=== PATIENT | female | born 1935 | race Caucasian/White ===

== ENCOUNTER 2018-09-26 10:45 | Inpatient (IN) | payer MEDICARE ==
--- NOTE | 2018-09-26 11:30 | RAD ---
RIGHT HIP TWO VIEWS: HISTORY: Injury. COMPARISON: None. FINDINGS: There is a fracture of the right inferior pubic ramus and a nondisplaced fracture of the right superi or pubic ramus. Either a peripherally calcified fibroid or a calcified mass in the left adnexa. The right femoral head and neck appear normal. IMPRESSION: Right inferior and superior rami fractures. Recommend dedicated views of the pelvis to evaluate the left superior and inferior pubic rami. POS: ANTHONY
[2018-09-26 12:09] LABS: ALT (SGPT) 22 U/L (8-55); AST (SGOT) 23 U/L (5-34); Albumin 4.1 g/dL (3.4-4.8); Alkaline Phosphatase 80 U/L (40-150); Anion Gap 16 mmol/L (10-20); BUN (Urea Nitrogen) 18 mg/dL (9.8-20.1); Bilirubin, Total 0.5 mg/dL (0.2-1.2); Calc. Creatinine Clearance 0 mL/min (70-130); Calcium 9.5 mg/dL (7.8-10.44); Carbon Dioxide 26 mmol/L (23-31); Chloride 104 mmol/L (98-107); Estimated GFR-MDRD 75; Globulin 2.5 g/dL (2.4-3.5); Glucose 88 mg/dL (83-110); Potassium 3.9 mmol/L (3.5-5.1); Protein, Total 6.6 g/dL (6.0-8.3); Sodium 142 mmol/L (136-145)
[2018-09-26 12:50] LABS: #Basophils 0.1 thou/uL (0.0-0.2); #Eosinphils 0.1 thou/uL (0.0-0.7); #Lymphocytes 0.9 thou/uL (1.20-3.40); #Monocytes 0.5 thou/uL (0.11-0.59); #Neutrophils 2.7 thou/uL (1.40-6.50); %Eosinophils 2.7 % (0.0-10.0); %Lymphocytes 21.8 % (21.0-51.0); %Monocytes 10.6 % (0.0-10.0); %Neutrophils 62.9 % (42.0-75.0); Hemoglobin 14.1 g/dL (12.0-16.0); Mean Corpuscular HGB CONC 34.1 g/dL (32.0-36.0); Mean Corpuscular Hemoglobin 32.2 pg (27.0-31.0); Mean Corpuscular Volume 94.5 fL (78.0-98.0); Mean Platelet Volume 6.7 fL (7.4-10.4); Platelet Count 143 thou/uL (130-400); RBC Distribution Width 13.4 % (11.5-14.5); Red Blood Cell (RBC) Count 4.37 mill/uL (4.20-5.40); White Blood Cell (WBC) Count 4.2 thou/uL (4.8-10.8)
--- NOTE | 2018-09-26 14:18 | CT ---
CT ABDOMEN NONCONTRAST CT PELVIS NONCONTRAST: (urolithiasis protocol) DATE: 09/26/18 TIME: 1150 hours HISTORY: 83-year-old female with traumatic right hip and right groin pain due to fall. Abnormal x-ray. COMPARISON: None. TECHNIQUE: IV injection of iodinated contrast media: none Oral contrast media: none FINDINGS: Other than for urolithiasis, the lack of IV and oral contrast limits the evaluation. There is a minimally displaced fracture of the right inferior ramus. There is no fracture of the righ t superior ramus, left superior ramus, or left inferior ramus. No fracture is identified involving th e rest of the pelvis or bilateral proximal femora. There is no associated extrapelvic hematoma. There is no free fluid within the pelvic cavity. There is a large calcified uterine fibroid in the left po sterior inferior aspect of the pelvic cavity. There are multiple hepatic cysts. No retroperitoneal he matoma. No free fluid within the abdominal cavity. Large amount of colonic stool. No renal, ureteral, or bladder calculus. No small bowel dilation. Lung bases are grossly clear. No compression fracture of the lumbar spine. There is a levoscoliosis of the lumbar spine. IMPRESSION: 1. Minimally displaced, acute, traumatic fracture of the inferior ramus of the right pelvis. 2. No other fracture. 3. Multiple hepatic cysts. LUISITO Watkins POS: DOLLY
[2018-09-26] MEDS ORDERED: Acetaminophen 650 MG Suppository PR PRN (14:27)
[2018-09-26] MEDS ORDERED: Ondansetron PF 4 MG/2 ML Vial SLOW IVP PRN (14:27)
[2018-09-26] MEDS ORDERED: Bisacodyl 5 MG TAB PO PRN (14:27)
[2018-09-26] MEDS ORDERED: HYDROcodone/Acetaminophen 10/325 mg Tablet PO PRN ×2 (14:27)
[2018-09-26] MEDS ORDERED: Sodium Chloride 0.9% (PF) 10 ML VIAL FS PRN (14:29)
[2018-09-26 14:36] VITALS: BMI 18.3
[2018-09-26] MEDS ORDERED: Acetaminophen 325 MG TAB PO PRN (18:07)
[2018-09-26] MEDS ORDERED: Acetaminophen/Codeine 30-300mg Tablet PO PRN (18:08)
[2018-09-27 05:09] LABS: #Basophils 0.1 thou/uL (0.0-0.2); #Eosinphils 0.1 thou/uL (0.0-0.7); #Lymphocytes 0.9 thou/uL (1.20-3.40); #Monocytes 0.6 thou/uL (0.11-0.59); #Neutrophils 2.9 thou/uL (1.40-6.50); %Basophils 1.8 % (0.0-1.0); %Eosinophils 2.4 % (0.0-10.0); %Lymphocytes 19.1 % (21.0-51.0); %Monocytes 13.1 % (0.0-10.0); %Neutrophils 63.6 % (42.0-75.0); Hemoglobin 13.6 g/dL (12.0-16.0); Mean Corpuscular HGB CONC 34.4 g/dL (32.0-36.0); Mean Corpuscular Hemoglobin 31.7 pg (27.0-31.0); Mean Platelet Volume 6.6 fL (7.4-10.4); Platelet Count 136 thou/uL (130-400); Red Blood Cell (RBC) Count 4.28 mill/uL (4.20-5.40); White Blood Cell (WBC) Count 4.6 thou/uL (4.8-10.8)
[2018-09-27 05:25] LABS: Anion Gap 11 mmol/L (10-20); BUN (Urea Nitrogen) 14 mg/dL (9.8-20.1); Calc. Creatinine Clearance 44 mL/min (70-130); Calcium 8.9 mg/dL (7.8-10.44); Carbon Dioxide 28 mmol/L (23-31); Cardiac Risk 2.6 (Less than 4.5); Chloride 106 mmol/L (98-107); Cholesterol 159 mg/dl (< 200 Desired); Estimated GFR-MDRD 82; Glucose 88 mg/dL (83-110); HDL Cholesterol 62 mg/dL (>60 Neg Risk); LDL Cholesterol, Calculated 88 mg/dL; Potassium 3.7 mmol/L (3.5-5.1); Sodium 141 mmol/L (136-145); Triglycerides 43 mg/dL (Less than 150)
[2018-09-27 06:57] VITALS: BP 116/56; TEMP 99
--- NOTE | 2018-09-27 07:32 | HP ---
CHIEF COMPLAINT: Fall and pain in the hip and pelvic area, and difficulty walking. HISTORY OF PRESENT ILLNESS: The patient is a very pleasant 83-year-old white female, who is independent of all her ADLs. She lives at home with her and she is independent also with her instrumental ADLs and continues to drive. She has a distant history of atrial fibrillation and stroke that left her with no impairment, and also a history of hypothyroidism, for which she is only on a natural thyroid supplement. Today, the patient had gone to see her massage therapist and as she arrived there, she had a couple of packs that were heavy and she was setting these down and grabbing hold of a rail. She got over-balanced and fell on to her right hip. She had immediate pain somewhere in the hip or pelvic area, and did not think it was anything serious. Two ladies that were present came to help her up and when they tried to get her up, she had pain that she noticed in the right pelvic and hip area. She was able to walk, but very cautiously and with the walking she had pain. Her friends brought her to the emergency room, where she was evaluated. She underwent an x-ray of the pelvis and the hip and also CT scan of the abdomen and pelvis. The CT scan showed that she had a non-displaced or impacted type fracture of the right inferior pubic ramus. There was no fracture of the superior ramus that was suggested on the plain x-ray, and there was no fracture on the left superior or inferior ramus. The CT of the abdomen also showed evidence of calcifications and fibroid on the uterus and also showed evidence of some cyst on the liver, otherwise was normal. She had lab work done in the emergency room that showed an H and H of 14.1 and 41.3 with a white blood cell count of 4,200 with 63% segs, 23% lymphocytes, and a platelet count of 143,000. Her sodium was 142, potassium 3.9, BUN 18, creatinine 0.74, GFR 75, glucose 99. Her liver panel was normal. Albumin was 4.1. The patient was admitted to the hospital for fracture of the inferior pubic ramus, for pain control, and therapy. The patient was seen soon after her admission and she said she was feeling good and she was not in any pain, but did have a little bit of pain and difficulty transferring and moving from a lying to a sitting position and reverse of this. She said she has been able to walk cautiously with the use of a walker. She hopes to be able to go home tomorrow and she said her would be there to help her. PAST MEDICAL HISTORY: The patient had a CVA, when she was age 50 and she said it affected her by dragging her left foot, this though has all gone away. She has hypothyroidism, but has not been on any prescription medication, but takes a natural thyroid supplement. She has a history of atrial fibrillation, but is not under any present care or on any medications for this. She has had a tonsillectomy at the age of 10. She is a 2, para 2. She had a chip fracture on the left tibia that she is recovering from at present. PRESENT MEDICATIONS: 1. Vitamin D. 2. Cardio Plus vitamin. 3. CitroPlus vitamin. 4. Cod liver oil. 5. Butter oil. 6. Cali oil. 7. Black cumin. ALLERGIES: THE PATIENT SAID SHE IS UNABLE TO TAKE IBUPROFEN. SHE WAS CONCERNED THAT THIS MAY HAVE CAUSED HER STROKE. REVIEW OF SYSTEMS: GENERAL: The patient said she has not had any recent fever. She has had no recent weight loss, but admits to having a hard time maintaining her weight, but she has been like this for a long time. She is also cold intolerant. HEAD AND NECK: The patient has problems with a little nasal drainage and sneezing. PULMONARY: No shortness breath or cough. CARDIOVASCULAR: No chest pain. GI: No nausea or vomiting. The patient says she occasionally has a little trouble with indigestion. : No complaints. PSYCHIATRIC: No complaints. HABITS: Alcohol, none. Tobacco, none. SOCIAL HISTORY: The patient is , lives at home with her . Both of them are independent of their ADLs. The patient continues to drive. 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 CODE STATUS: DNR. PHYSICAL EXAMINATION: GENERAL: Shows a very pleasant asthenic-built 83-year-old white female, who is alert, talkative, and seems to be very aware of her situation. VITAL SIGNS: Shows a temperature of 96.7, pulse 97, respirations 16, O2 saturation 96% on room air. Her blood pressure is 121/70. Her weight is 100 pounds. Her height is 5 feet 2 inches. HEENT: Her head is normocephalic and atraumatic. Eyes, pupils are equal, round , and reactive. Sclerae nonicteric. Extraocular musculatures intact. Ears; TMs are clear. Nose normal. Mouth and throat, normal. NECK: Carotids have slight irregularity. No bruits. Thyroid not enlarged. LUNGS: Clear. HEART: Has irregularly irregular rhythm. ABDOMEN: Soft with no organomegaly, nor areas of tenderness. Palpation over the pelvic area shows no tenderness on anterior-posterior compression at the pubic symphysis. There is no tenderness with compression of the iliac crest. The patient is tender along the right inferior pubic ramus. EXTREMITIES: Her lower extremities have no edema. The pulses in her feet, dorsalis pedis was 2+, posterior tibialis was 2+. NEUROLOGIC: The patient's cranial nerves 2 through 12 were grossly intact with the exception she has inability to raise the left side of her mouth when she smiles. The patient has no focal weakness. The patient is oriented to place, situation , and time. MUSCULOSKELETAL: The patient has excellent body strength that is symmetric in the upper extremities and also in the lower extremities. She has a little decreased strength on the right side because that is the side that she has the pelvic fracture on. The patient has some trouble going from a sitting to a lying position and from a lying to a sitting position, she requires assistance. IMPRESSION: 1. Closed impacted fracture of the right pubic symphysis. a. Secondary to a fall from tripping on 09/26/2018. 2. Fall. a. Etiology, ground level fall from getting over-balanced that occurred on 09/26/2018. b. No history of any head injury or loss of consciousness and fall was witnessed. c. Resulted in closed impacted fracture of the inferior pubic ramus. 3. Chronic atrial fibrillation, rate controlled. a. On no anticoagulations or medication. 4. Hypothyroidism, on no medications other than a thyroid supplement. 5. Hepatic cyst seen on CT scan. 6. Calcified fibroids of the uterus seen on the CT scan, asymptomatic. 7. Gait abnormality secondary to a fall. PLAN: The patient has been admitted to the hospital. We will place her in JOS[facility] hose. PT and OT will evaluate her. We will order Tylenol for pain. The patient says she really does not think she will need anything. She hopes to go home tomorrow. We will wait and see how she does with physical therapy and ensure that she has adequate home support. Her atrial fibrillation, we will discuss with her on management for now and treatment. She has her own ideas about management of things. Code status is DNR. Job ID: [id number] MTDD
[2018-09-27] MEDS ORDERED: Enoxaparin Sodium 40 MG/0.4 ML SYRINGE SC SCH (09:00)
[2018-09-27] MEDS ORDERED: Pantoprazole 40 MG VIAL IVP SCH (09:00)
--- NOTE | 2018-09-27 12:25 | DIS ---
DATE OF ADMISSION: 09/26/2018 DATE OF DISCHARGE: 09/27/2018 FINAL DIAGNOSES: 1. Closed impacted fracture of the right pubic symphysis. a. Secondary to a fall from tripping on 09/26/2018. 2. Fall. a. Etiology, ground level fall from getting over-balanced that occurred on 09/26/2018. b. No history of any head injury or loss of consciousness and fall was witnessed. c. Resulted in closed impacted fracture of the inferior pubic ramus. 3. Chronic atrial fibrillation, rate controlled. a. On no anticoagulants or medication. b. At this time does not want to pursue Cardiology consultation. 4. Hypothyroidism, on no medications other than a thyroid supplement. a. TSH was 2.1. 5. Hepatic cyst seen on CT scan. 6. Calcified fibroids of the uterus seen on the CT scan, asymptomatic. 7. Gait abnormality secondary to a fall and fracture of the right inferior pubic ramus. SUMMARY: The patient is a very pleasant 83-year-old white female, who lives at home with her and is independent of all her ADLs, drives and attendance all her instrumental ADLs. She has a history of hypothyroidism, treated with thyroid supplement and also a history of atrial fibrillation and has opted not to pursue any followup with her research chemical engineer. She had a fall when she was going into see her massage therapist. She was putting down some packs that she was carrying and got overbalanced and fell onto her right hip. She could not get up on her own. The ladies there helped her up, but she had pain when she attempted to walk. She was brought to the emergency room and after evaluation with x-ray of the pelvis and hip and CT scan of the abdomen, she was found to have an impacted fracture of the right inferior pubic ramus. There was no other fractures noted. She did show a calcification in the uterine fibroid and also had some hepatic cysts. The patient was admitted to the hospital because of her discomfort with walking and her gait abnormality. The patient was seen soon after her admission and had maintained that she was doing fine and intends to go home tomorrow. The patient says she is not having any pain. She just has a little difficulty with getting up and down from bed and she said she can walk as long she has a walker and will have help at home. On exam, she was found to have an irregularly irregular rhythm. Her lungs were clear. Her pelvic area showed tenderness to palpation over the right inferior pubic ramus. There was no bruising in that area. She had no other areas of tenderness and with the fall, she did not hit her head. There was no loss of consciousness. The patient said she was not having any pain and maintained that she needed nothing for this. The patient was checked in the morning of 09/27, and was doing very well. She had a restful night. She said she was not hurting. Therapy had been with her yesterday and she was walking with a walker with just a little shuffling gait. They will work with her this morning. Her exam was unremarkable with the exception that her heart had the irregularly irregular rhythm with a rate of 80 and blood pressure was 116/56. Reviewed her lab work and her sodium was 141, potassium 3.7, BUN 14, creatinine 0.68, GFR 82. Her cholesterol 159, triglycerides 43, LDL 88, HDL 62, TSH 2.1. Her H and H was 13.6 and 39.4, white cell count 4600 with 64% segs, 19% lymphocytes, and a platelet count of a 136,000. The patient's electrocardiogram showed atrial fibrillation with a rate of 81. Visited with the patient and she maintained that she had people coming in that would assist her and she had her there and would be fine. I offered to let her stay a little longer for Therapy to continue to work with her, but she said that it is not necessary. I discussed her atrial fibrillation with her and she said in the past and years ago, she is seeing Dr. Rashid, but at that time, opted not to go through her all those suggestions that he had and would see her back, if she needed him. She has not been back. I discussed with her about the risk of stroke and recommended that she start a baby aspirin a day and consider re-seeing him. She said she will take this under consideration, but the patient' s condition was stable and it was felt that with the adequate support, her ability to ambulate with a walker, that she would be fine at home. We will see her in followup in my office in 2 weeks. DISPOSITION: DIET: Regular diet. ACTIVITIES: Ambulate with the use of a walker. MEDICATIONS: 1. Tylenol 500 mg 1 or 2 three times a day as needed for pain. 2. Aspirin 81 mg a day. Patient declined home health with in-home physical therapy. Will see her in followup in 2 weeks. Job ID: [id number] MTDD
== END 2018-09-27 09:30 | disposition home or self-care (01) | DRG 561 ==
LOC: MADERS 10:45 → MADMS 13:22
PROVIDERS: ADMIT Family Medicine; ATTEND Family Medicine
DX: S32.591D Other specified fracture of right pubis, subsequent encounter for fracture with routine healing (principal); I48.2 Chronic atrial fibrillation; E03.9 Hypothyroidism, unspecified; Z66 Do not resuscitate; K76.89 Other specified diseases of liver; D25.9 Leiomyoma of uterus, unspecified; R26.9 Unspecified abnormalities of gait and mobility; W01.0XXD Fall on same level from slipping, tripping and stumbling without subsequent striking against object, subsequent encounter
CPT/HCPCS: 36415; 74176; 80048; 80053; 80061; 84443; 85025; 93005; 93010